=== PATIENT | male | born 1945 | race Caucasian/White ===

== ENCOUNTER 2016-06-02 12:50 | Inpatient (IN) | payer MEDICARE, BC ==
[~2016-06-02] VITALS: Ht 182.9 cm; Wt 91.8 kg
[~2016-06-02 12:50] MED LIST: ALBU0.424 IH; AMLO2.5T29 PO; ASPI81TA2 PO; ATOR40TA71 PO; BISA10SU61 PR; CLOP75 PO; EPOE10003 SQ; FERR1TAB85 PO; KDUR10 PO; METO-323 PO; MOM30 PO; OMEG300C3 PO; ONDA4TAB4 PO; PANT40TA25 PO; RANO500T3 PO; SALMH IH; SAW450CA4 PO; VITAD5000 PO; ZAFI20TA13 PO; ZOLP5TAB2 PO
[2016-06-02 14:20] LABS: BASOPHILS % (AUTO) 0.3 % (0.0-2.0); EOSINOPHILS % (AUTO) 1.3 % (1.0-6.0); LYMPHOCYTES # (AUTO) 0.5 K/uL (1.0-4.8); MEAN CORPUSCULAR HGB CONC 29.5 G/dL (31.0-37.0); MEAN CORPUSCULAR VOLUME 81 fL (80-100); MONOCYTES # (AUTO) 0.6 K/uL (0.1-1.0); MONOCYTES % (AUTO) 7.5 % (2.0-9.0); NEUTROPHILS # (AUTO) 6.4 K/uL (1.8-7.7); NEUTROPHILS % (AUTO) 83.9 % (40.0-70.0); PLATELET COUNT (AUTO) 388 K/uL (150-450); RED BLOOD CELL COUNT(AUTO) 2.14 MIL/uL (4.50-5.90); RED CELL DISTRIBUTION WIDTH 18.5 % (11.5-14.5); WHITE BLOOD COUNT (AUTO) 7.7 K/uL (4.5-11.0)
[2016-06-02 14:28] LABS: HEMOGLOBIN 5.1 g/dL (13.5-17.5)
[2016-06-02 14:29] LABS: HEMATOCRIT 17.4 % (41-53)
[2016-06-02 14:35] LABS: ANION GAP 10 mmol/L (8-16); CALCIUM, TOTAL 8.3 mg/dL (8.8-10.5); CARBON DIOXIDE 26 mmol/L (22-29); CHLORIDE 111 mmol/L (98-107); GLOMERULAR FILTR. RATE CALC > 60 mL/min (>60); POTASSIUM 3.7 mmol/L (3.5-5.1); SODIUM SERUM 147 mmol/L (136-145); UREA NITROGEN, BLOOD 20 mg/dL (7-18)
[2016-06-02 14:40] LABS: B-TYPE NATRIURETIC PEPTIDE 128 pg/mL (0-100)
[2016-06-02 14:41] LABS: RBC MORPHOLOGY COMMENT ABNORMAL RBC MORPH
[2016-06-02 15:01] LABS: ALANINE AMINOTRANSFERASE 28 U/L (12-78); ALBUMIN 3.2 g/dL (3.4-5.0); ASPARTATE AMINOTRANSFERASE 11 U/L (15-37); BILIRUBIN,TOTAL 0.2 mg/dL (0.1-1.0); CREATINE KINASE MB 4.5 ng/mL (0-5); CREATINE KINASE, TOTAL 125 U/L (39-308); TOTAL PROTEIN, SERUM 6.2 g/dL (6.4-8.2)
[2016-06-02] MEDS ORDERED: ONDANSETRON HCL 4 MG/2 ML VIAL IVP PRN (16:00)
[2016-06-02] MEDS ORDERED: 0.9% SODIUM CHLORIDE 10 ML SYRINGE IVP PRN (16:00)
[2016-06-02] MEDS ORDERED: ACETAMINOPHEN 325 MG TABLET PO PRN (16:00)
[2016-06-02] MEDS ORDERED: DiphenhydrAMINE HCL 25 MG CAPSULE PO ONE (17:30)
[2016-06-02] MEDS ORDERED: ONDANSETRON HCL 4 MG TABLET PO PRN (17:30)
[2016-06-02] MEDS ORDERED: BISACODYL 10 MG RECTAL RECTAL SUPPOSITORY PR PRN (17:30)
[2016-06-02] MEDS ORDERED: MAGNESIUM HYDROXIDE SUSPENSION 30 ML UDCUP PO PRN (17:30)
[2016-06-02] MEDS ORDERED: ZOLPIDEM TARTRATE 5 MG TABLET PO PRN (17:30)
[2016-06-02 18:16] LABS: APPEARANCE,URINE CLEAR (CLEAR); GLUCOSE, URINE (UA) NEGATIVE (NEGATIVE); KETONES,URINE NEGATIVE (NEGATIVE); LEUKOCYTE ESTERASE ,URINE NEGATIVE (NEGATIVE); OCCULT BLOOD,URINE NEGATIVE (NEGATIVE); PROTEIN,URINE NEGATIVE (NEGATIVE)
[2016-06-02 18:33] LABS: ADD UA MICROSCOPIC NO
[2016-06-02] MEDS: FUROSEMIDE 20 MG/2 ML VIAL IVP ONE ×2 (18:42→18:45)
[2016-06-02 20:52] VITALS: BP 122/59
[2016-06-02] MEDS: BUDESONIDE 0.5 MG/2 ML NEB SOLUTION NEB SCH (20:58)
[2016-06-02] MEDS ORDERED: SODIUM CHLORIDE 0.9% 250 ML IV ONE (21:07)
[2016-06-02] MEDS: ATORVASTATIN CALCIUM 40 MG TABLET PO SCH (21:46)
[2016-06-02] MEDS: RANOLAZINE 500 MG SR TABLET PO SCH (21:47)
[2016-06-02] MEDS: ZAFIRLUKAST 20 MG TABLET PO SCH (21:47)
[2016-06-02] MEDS: SALMETEROL XINAFOATE IH SCH (21:47)
[2016-06-02] MEDS ORDERED: ALBU8HFA4 IH (23:51)
[2016-06-02] MEDS ORDERED: BUDE10.2 IH (23:51)
[2016-06-02 23:58] VITALS: BP 120/50
[2016-06-02] MEDS: ALBUTEROL SULFATE HFA 90 MCG/PUFF 8 GM INHALER IH PRN (23:58)
[2016-06-03] VITALS (35 sets, daily range): BP systolic 101–131; BP diastolic 54–77
[2016-06-03] MEDS: BUDESONIDE 0.5 MG/2 ML NEB SOLUTION NEB SCH ×2 (08:21→22:00)
[2016-06-03] MEDS: SALMETEROL XINAFOATE IH SCH ×2 (08:42→20:48)
[2016-06-03] MEDS: RANOLAZINE 500 MG SR TABLET PO SCH ×2 (08:44→20:45)
[2016-06-03] MEDS: AmLODIPine BESYLATE 2.5 MG TABLET PO SCH (08:45)
[2016-06-03] MEDS: METOPROLOL SUCCINATE 25 MG ER TABLET PO SCH (08:45)
[2016-06-03] MEDS: ZAFIRLUKAST 20 MG TABLET PO SCH ×2 (08:45→20:45)
[2016-06-03] MEDS: POTASSIUM CHLORIDE 10 MEQ ER TABLET PO SCH (08:45)
[2016-06-03] MEDS: PANTOPRAZOLE SODIUM 40 MG DR TABLET PO SCH (08:45)
[2016-06-03] MEDS: CHOLECALCIFEROL (VIT D3) 5,000 UNITS CAPSULE PO SCH (08:45)
[2016-06-03] MEDS ORDERED: EPOETIN ALFA 10,000 UNITS/ML VIAL SQ SCH (09:00)
[2016-06-03] MEDS: ASPIRIN 81 MG CHEWABLE TABLET PO SCH (09:00)
[2016-06-03] MEDS: CLOPIDOGREL BISULFATE 75 MG TABLET PO SCH (09:00)
[2016-06-03] MEDS: ALBUTEROL SULFATE HFA 90 MCG/PUFF 8 GM INHALER IH PRN ×2 (09:58→14:41)
[2016-06-03] MEDS ORDERED: FURO40 PO (10:23)
[2016-06-03] MEDS: FUROSEMIDE 40 MG TABLET PO SCH (11:31)
[2016-06-03] MEDS: BUDESONIDE/FORMOTEROL FUMARATE 160-4.5 MCG/PUFF 6.9 GM INHALER IH SCH ×2 (12:05→20:48)
[2016-06-03 12:29] LABS: BASOPHILS % (AUTO) 1.6 % (0.0-2.0); EOSINOPHILS % (AUTO) 2.3 % (1.0-6.0); HEMATOCRIT 25.9 % (41-53); HEMOGLOBIN 7.7 g/dL (13.5-17.5); LYMPHOCYTES # (AUTO) 0.5 K/uL (1.0-4.8); LYMPHOCYTES % (AUTO) 5.2 % (22.0-44.0); MEAN CORPUSCULAR HGB CONC 29.9 G/dL (31.0-37.0); MEAN CORPUSCULAR VOLUME 83 fL (80-100); MONOCYTES # (AUTO) 0.8 K/uL (0.1-1.0); MONOCYTES % (AUTO) 7.4 % (2.0-9.0); NEUTROPHILS # (AUTO) 8.5 K/uL (1.8-7.7); NEUTROPHILS % (AUTO) 83.5 % (40.0-70.0); PLATELET COUNT (AUTO) 370 K/uL (150-450); RED CELL DISTRIBUTION WIDTH 17.5 % (11.5-14.5); WHITE BLOOD COUNT (AUTO) 10.2 K/uL (4.5-11.0)
[2016-06-03 12:56] LABS: RBC MORPHOLOGY COMMENT ABNORMAL RBC MORPH
[2016-06-03] MEDS ORDERED: DiphenhydrAMINE HCL 25 MG CAPSULE PO ONE (13:00)
[2016-06-03] MEDS ORDERED: FUROSEMIDE 20 MG/2 ML VIAL IVP ONE ×2 (13:00)
[2016-06-03] MEDS ORDERED: SODIUM CHLORIDE 0.9% 500 ML IV ONE (14:41)
[2016-06-03] MEDS: FERROUS SULFATE 325 MG EC TABLET PO SCH (19:05)
[2016-06-03] MEDS ORDERED: DiphenhydrAMINE HCL 50 MG/ML VIAL ONE (20:24)
[2016-06-03] MEDS ORDERED: IPRATROPIUM BROMIDE 0.5 MG/2.5 ML NEB SOLUTION NEB PRN (20:30)
[2016-06-03] MEDS ORDERED: DiphenhydrAMINE HCL 50 MG/ML VIAL IVP ONE (20:30)
[2016-06-03] MEDS: ATORVASTATIN CALCIUM 40 MG TABLET PO SCH (20:45)
[2016-06-03] MEDS: PredniSONE 20 MG TABLET PO SCH (20:45)
[2016-06-03 22:02] LABS: BASOPHILS # (AUTO) 0.02 K/uL (0.00-0.20); BASOPHILS % (AUTO) 0.5 % (0.0-2.0); EOSINOPHILS # (AUTO) 0.05 K/uL (0.00-0.70); EOSINOPHILS % (AUTO) 1.34 % (1.0-6.0); HEMATOCRIT 28.9 % (41-53); HEMOGLOBIN 9.2 g/dL (13.5-17.5); LYMPHOCYTES # (AUTO) 0.1 K/uL (1.0-4.8); LYMPHOCYTES % (AUTO) 2.6 % (22.0-44.0); MEAN CORPUSCULAR HEMOGLOBIN 26.3 pg (26.0-34.0); MEAN CORPUSCULAR HGB CONC 31.7 G/dL (31.0-37.0); MEAN CORPUSCULAR VOLUME 83 fL (80-100); MONOCYTES % (AUTO) 0.4 % (2.0-9.0); NEUTROPHILS # (AUTO) 3.9 K/uL (1.8-7.7); PLATELET COUNT (AUTO) 306 K/uL (150-450); RED BLOOD CELL COUNT(AUTO) 3.48 MIL/uL (4.50-5.90); RED CELL DISTRIBUTION WIDTH 17.2 % (11.5-14.5); WHITE BLOOD COUNT (AUTO) 4.1 K/uL (4.5-11.0)
[2016-06-03 22:07] LABS: NEUTROPHILS % (AUTO) 95.2 % (40.0-70.0)
[2016-06-03 22:25] LABS: RBC MORPHOLOGY COMMENT ABNORMAL RBC MORPH
[2016-06-04 05:02] VITALS: BP 102/57
[2016-06-04 07:08] LABS: EOSINOPHILS % (AUTO) 0 % (1.0-6.0); HEMATOCRIT 26.7 % (41-53); HEMOGLOBIN 8.3 g/dL (13.5-17.5); LYMPHOCYTES # (AUTO) 0.1 K/uL (1.0-4.8); LYMPHOCYTES % (AUTO) 0.7 % (22.0-44.0); MEAN CORPUSCULAR HEMOGLOBIN 25.9 pg (26.0-34.0); MEAN CORPUSCULAR HGB CONC 30.9 G/dL (31.0-37.0); MEAN CORPUSCULAR VOLUME 84 fL (80-100); MONOCYTES # (AUTO) 0.4 K/uL (0.1-1.0); MONOCYTES % (AUTO) 2.3 % (2.0-9.0); NEUTROPHILS # (AUTO) 16.8 K/uL (1.8-7.7); PLATELET COUNT (AUTO) 308 K/uL (150-450); RED BLOOD CELL COUNT(AUTO) 3.19 MIL/uL (4.50-5.90); RED CELL DISTRIBUTION WIDTH 16.9 % (11.5-14.5); WHITE BLOOD COUNT (AUTO) 17.3 K/uL (4.5-11.0)
[2016-06-04 07:25] LABS: ANION GAP 7 mmol/L (8-16); CARBON DIOXIDE 28 mmol/L (22-29); CHLORIDE 108 mmol/L (98-107); CREATININE 1.09 mg/dL (0.60-1.30); POTASSIUM 3.4 mmol/L (3.5-5.1); SODIUM SERUM 143 mmol/L (136-145); UREA NITROGEN, BLOOD 20 mg/dL (7-18)
[2016-06-04 07:26] LABS: CALCIUM, TOTAL 7.8 mg/dL (8.8-10.5); GLOMERULAR FILTR. RATE CALC > 60 mL/min (>60)
[2016-06-04 07:39] VITALS: BP 105/60
[2016-06-04] MEDS: METOPROLOL SUCCINATE 25 MG ER TABLET PO SCH (08:04)
[2016-06-04 08:10] LABS: RBC MORPHOLOGY COMMENT ABNORMAL RBC MORPH
[2016-06-04] MEDS: ASPIRIN 81 MG CHEWABLE TABLET PO SCH (08:24)
[2016-06-04] MEDS: CLOPIDOGREL BISULFATE 75 MG TABLET PO SCH (08:24)
[2016-06-04] MEDS: FERROUS SULFATE 325 MG EC TABLET PO SCH (08:35)
[2016-06-04] MEDS: SALMETEROL XINAFOATE IH SCH (08:35)
[2016-06-04] MEDS: PANTOPRAZOLE SODIUM 40 MG DR TABLET PO SCH (08:35)
[2016-06-04] MEDS: FUROSEMIDE 40 MG TABLET PO SCH (08:35)
[2016-06-04] MEDS: PredniSONE 20 MG TABLET PO SCH (08:35)
[2016-06-04] MEDS: POTASSIUM CHLORIDE 10 MEQ ER TABLET PO SCH (08:36)
[2016-06-04] MEDS: ZAFIRLUKAST 20 MG TABLET PO SCH (08:36)
[2016-06-04] MEDS: ALBUTEROL SULFATE HFA 90 MCG/PUFF 8 GM INHALER IH PRN (08:36)
[2016-06-04] MEDS: BUDESONIDE/FORMOTEROL FUMARATE 160-4.5 MCG/PUFF 6.9 GM INHALER IH SCH (08:36)
[2016-06-04] MEDS: RANOLAZINE 500 MG SR TABLET PO SCH (08:37)
[2016-06-04] MEDS: CHOLECALCIFEROL (VIT D3) 5,000 UNITS CAPSULE PO SCH (08:37)
[2016-06-04] MEDS: BUDESONIDE 0.5 MG/2 ML NEB SOLUTION NEB SCH (08:43)
[2016-06-04] MEDS: AmLODIPine BESYLATE 2.5 MG TABLET PO SCH (09:00)
[2016-06-04] MEDS ORDERED: EPOETIN ALFA 10,000 UNITS/ML VIAL SQ ONE ×2 (10:30)
[2016-06-04] MEDS ORDERED: POTASSIUM CHLORIDE 20 MEQ ER TABLET PO ONE (10:30)
[2016-06-04 13:25] VITALS: BP 111/54
[2016-06-04 15:47] VITALS: BP 112/59
== END 2016-06-04 15:45 | disposition home or self-care (01) | DRG 815 ==
LOC: EMS 12:56 → 5S 18:15
PROVIDERS: ADMIT Internal Medicine Geriatric Medicine; ATTEND Internal Medicine Geriatric Medicine
PROC: 30233N1 Transfusion of Nonautologous Red Blood Cells into Peripheral Vein, Percutaneous Approach (ICD-10-PCS; principal; 2016-06-03)
DX: D75.89 Other specified diseases of blood and blood-forming organs (principal); E87.0 Hyperosmolality and hypernatremia; J44.1 Chronic obstructive pulmonary disease with (acute) exacerbation; D72.829 Elevated white blood cell count, unspecified; E87.6 Hypokalemia; J30.9 Allergic rhinitis, unspecified; R60.9 Edema, unspecified; Z53.29 Procedure and treatment not carried out because of patient's decision for other reasons; E78.5 Hyperlipidemia, unspecified; D63.8 Anemia in other chronic diseases classified elsewhere; I10 Essential (primary) hypertension; I25.10 Atherosclerotic heart disease of native coronary artery without angina pectoris; Z86.73 Personal history of transient ischemic attack (TIA), and cerebral infarction without residual deficits; Z95.1 Presence of aortocoronary bypass graft; I25.2 Old myocardial infarction; Z88.6 Allergy status to analgesic agent; Z87.891 Personal history of nicotine dependence
CPT/HCPCS: 86850; 86870; 86880; 86900; 86901; 86922; 86931; 86971; 93005; 94640; 99291; J0885; J1200; J1940; J3535; J7040; J7050; P9016; Q0162

== ENCOUNTER 2016-06-28 19:11 | Inpatient (IN) | payer MEDICARE, BC ==
[~2016-06-28] VITALS: Ht 182.9 cm; Wt 88.4 kg
[~2016-06-28 19:11] MED LIST changes: +ALBU8HFA4 IH; +BUDE10.2 IH; +FURO40 PO
[2016-06-28 20:38] LABS: PROTHROMBIN TIME 10.3 SEC (9.4-11.6)
[2016-06-28 20:40] LABS: BASOPHILS # (AUTO) 0.04 K/uL (0.00-0.20); BASOPHILS % (AUTO) 0.4 % (0.0-2.0); EOSINOPHILS # (AUTO) 0.13 K/uL (0.00-0.70); EOSINOPHILS % (AUTO) 1.23 % (1.0-6.0); LYMPHOCYTES # (AUTO) 0.5 K/uL (1.0-4.8); MEAN CORPUSCULAR HEMOGLOBIN 28.3 pg (26.0-34.0); MEAN CORPUSCULAR HGB CONC 30.7 G/dL (31.0-37.0); MEAN CORPUSCULAR VOLUME 92 fL (80-100); MONOCYTES # (AUTO) 0.7 K/uL (0.1-1.0); MONOCYTES % (AUTO) 6.6 % (2.0-9.0); NEUTROPHILS # (AUTO) 8.9 K/uL (1.8-7.7); PLATELET COUNT (AUTO) 409 K/uL (150-450); RED BLOOD CELL COUNT(AUTO) 2.17 MIL/uL (4.50-5.90); RED CELL DISTRIBUTION WIDTH 23.1 % (11.5-14.5); WHITE BLOOD COUNT (AUTO) 10.3 K/uL (4.5-11.0)
[2016-06-28 20:42] LABS: ANION GAP 11 mmol/L (8-16); CALCIUM, TOTAL 8.3 mg/dL (8.8-10.5); CARBON DIOXIDE 26 mmol/L (22-29); CHLORIDE 111 mmol/L (98-107); CREATININE 1.04 mg/dL (0.60-1.30); GLOMERULAR FILTR. RATE CALC > 60 mL/min (>60); POTASSIUM 3.5 mmol/L (3.5-5.1); SODIUM SERUM 148 mmol/L (136-145); UREA NITROGEN, BLOOD 23 mg/dL (7-18)
[2016-06-28 20:48] LABS: ALANINE AMINOTRANSFERASE 37 U/L (12-78); ASPARTATE AMINOTRANSFERASE 17 U/L (15-37); BILIRUBIN,TOTAL 0.2 mg/dL (0.1-1.0); NEUTROPHILS % (AUTO) 86.7 % (40.0-70.0); TOTAL PROTEIN, SERUM 6.1 g/dL (6.4-8.2)
[2016-06-28 20:49] LABS: HEMOGLOBIN 6.2 g/dL (13.5-17.5)
[2016-06-28 21:32] LABS: B-TYPE NATRIURETIC PEPTIDE 102 pg/mL (0-100)
[2016-06-28] MEDS ORDERED: ALBUTEROL SULFATE HFA 90 MCG/PUFF 8 GM INHALER IH PRN (22:45)
[2016-06-28] MEDS ORDERED: ONDANSETRON HCL 4 MG TABLET PO PRN (22:45)
[2016-06-28] MEDS ORDERED: BISACODYL 10 MG RECTAL RECTAL SUPPOSITORY PR PRN (22:45)
[2016-06-28] MEDS ORDERED: ZOLPIDEM TARTRATE 5 MG TABLET PO PRN (22:45)
[2016-06-28] MEDS ORDERED: MAGNESIUM HYDROXIDE SUSPENSION 30 ML UDCUP PO PRN (22:45)
[2016-06-28] MEDS ORDERED: ONDANSETRON HCL 4 MG/2 ML VIAL IVP PRN (23:00)
[2016-06-28] MEDS ORDERED: DiphenhydrAMINE HCL 50 MG/ML VIAL IVP PRN (23:00)
[2016-06-28] MEDS ORDERED: 0.9% SODIUM CHLORIDE 10 ML SYRINGE IVP PRN (23:00)
[2016-06-28] MEDS ORDERED: ACETAMINOPHEN 325 MG TABLET PO PRN (23:00)
[2016-06-28 23:31] VITALS: BP 124/71
[2016-06-29] VITALS (20 sets, daily range): BP systolic 102–134; BP diastolic 46–84
[2016-06-29] MEDS ORDERED: SALMETEROL XINAFOATE IH ONE (00:15)
[2016-06-29] MEDS: SALMETEROL XINAFOATE IH SCH ×3 (00:16→20:40)
[2016-06-29] MEDS: ACETAMINOPHEN 325 MG TABLET PO PRN ×3 (01:59→22:46)
[2016-06-29 06:30] LABS: BASOPHILS % (AUTO) 0.5 % (0.0-2.0); EOSINOPHILS % (AUTO) 3.1 % (1.0-6.0); LYMPHOCYTES # (AUTO) 0.6 K/uL (1.0-4.8); LYMPHOCYTES % (AUTO) 8.1 % (22.0-44.0); MEAN CORPUSCULAR HEMOGLOBIN 28.4 pg (26.0-34.0); MEAN CORPUSCULAR HGB CONC 30.7 G/dL (31.0-37.0); MEAN CORPUSCULAR VOLUME 93 fL (80-100); MONOCYTES # (AUTO) 0.7 K/uL (0.1-1.0); MONOCYTES % (AUTO) 9.6 % (2.0-9.0); NEUTROPHILS # (AUTO) 5.5 K/uL (1.8-7.7); NEUTROPHILS % (AUTO) 78.7 % (40.0-70.0); PLATELET COUNT (AUTO) 385 K/uL (150-450); RED BLOOD CELL COUNT(AUTO) 1.87 MIL/uL (4.50-5.90); RED CELL DISTRIBUTION WIDTH 23.4 % (11.5-14.5)
[2016-06-29 06:57] LABS: ANION GAP 2 mmol/L (8-16); CALCIUM, TOTAL 7.8 mg/dL (8.8-10.5); CARBON DIOXIDE 26 mmol/L (22-29); CHLORIDE 110 mmol/L (98-107); CREATININE 0.81 mg/dL (0.60-1.30); GLOMERULAR FILTR. RATE CALC > 60 mL/min (>60); SODIUM SERUM 138 mmol/L (136-145); UREA NITROGEN, BLOOD 20 mg/dL (7-18)
[2016-06-29 07:22] LABS: HEMATOCRIT 17.3 % (41-53); HEMOGLOBIN 5.3 g/dL (13.5-17.5)
[2016-06-29] MEDS ORDERED: EPOETIN ALFA 10,000 UNITS/ML VIAL SQ SCH (09:00)
[2016-06-29] MEDS ORDERED: SALMETEROL XINAFOATE IH SCH (09:00)
[2016-06-29] MEDS ORDERED: ASPIRIN 81 MG CHEWABLE TABLET PO SCH (09:00)
[2016-06-29] MEDS ORDERED: POTASSIUM CHL 10 MEQ/WATER 50 ML IV PRN (09:30)
[2016-06-29] MEDS ORDERED: POTASSIUM CHLORIDE 20 MEQ ER TABLET PO PRN (09:30)
[2016-06-29 09:31] LABS: RBC MORPHOLOGY COMMENT ABNORMAL RBC MORPH
[2016-06-29] MEDS: CHOLECALCIFEROL (VIT D3) 5,000 UNITS CAPSULE PO SCH (09:31)
[2016-06-29] MEDS: PANTOPRAZOLE SODIUM 40 MG DR TABLET PO SCH (09:32)
[2016-06-29] MEDS: FUROSEMIDE 40 MG TABLET PO SCH (09:32)
[2016-06-29] MEDS: POTASSIUM CHLORIDE 10 MEQ ER TABLET PO SCH (09:32)
[2016-06-29] MEDS: ZAFIRLUKAST 20 MG TABLET PO SCH ×2 (09:33→20:40)
[2016-06-29] MEDS: BUDESONIDE/FORMOTEROL FUMARATE 160-4.5 MCG/PUFF 6.9 GM INHALER IH SCH ×2 (09:34→20:40)
[2016-06-29] MEDS ORDERED: SODIUM CHLORIDE 0.9% 500 ML IV ONE (13:11)
[2016-06-29 14:25] LABS: APPEARANCE,URINE CLEAR (CLEAR); GLUCOSE, URINE (UA) NEGATIVE (NEGATIVE); KETONES,URINE NEGATIVE (NEGATIVE); LEUKOCYTE ESTERASE ,URINE NEGATIVE (NEGATIVE); OCCULT BLOOD,URINE NEGATIVE (NEGATIVE); PROTEIN,URINE NEGATIVE (NEGATIVE)
[2016-06-29 14:26] LABS: ADD UA MICROSCOPIC NO
[2016-06-29] MEDS ORDERED: ATORVASTATIN CALCIUM 40 MG TABLET PO SCH (21:00)
[2016-06-29] MEDS ORDERED: METOPROLOL SUCCINATE 25 MG ER TABLET PO SCH (23:00)
[2016-06-30] VITALS (13 sets, daily range): BP systolic 109–132; BP diastolic 50–72
[2016-06-30] MEDS ORDERED: SODIUM CHLORIDE 0.9% 250 ML IV ONE (05:58)
[2016-06-30 07:22] LABS: ALANINE AMINOTRANSFERASE 24 U/L (12-78); ALBUMIN 2.6 g/dL (3.4-5.0); ANION GAP 7 mmol/L (8-16); ASPARTATE AMINOTRANSFERASE 10 U/L (15-37); BILIRUBIN,TOTAL 0.4 mg/dL (0.1-1.0); CALCIUM, TOTAL 7.7 mg/dL (8.8-10.5); CARBON DIOXIDE 29 mmol/L (22-29); CHLORIDE 111 mmol/L (98-107); CREATININE 0.72 mg/dL (0.60-1.30); GLOMERULAR FILTR. RATE CALC > 60 mL/min (>60); POTASSIUM 3.5 mmol/L (3.5-5.1); SODIUM SERUM 147 mmol/L (136-145); TOTAL PROTEIN, SERUM 5.3 g/dL (6.4-8.2); UREA NITROGEN, BLOOD 14 mg/dL (7-18)
[2016-06-30] MEDS: ZAFIRLUKAST 20 MG TABLET PO SCH (08:20)
[2016-06-30] MEDS: POTASSIUM CHLORIDE 10 MEQ ER TABLET PO SCH (08:20)
[2016-06-30] MEDS: BUDESONIDE/FORMOTEROL FUMARATE 160-4.5 MCG/PUFF 6.9 GM INHALER IH SCH (08:21)
[2016-06-30] MEDS: FUROSEMIDE 40 MG TABLET PO SCH (08:21)
[2016-06-30] MEDS: PANTOPRAZOLE SODIUM 40 MG DR TABLET PO SCH (08:22)
[2016-06-30] MEDS: CHOLECALCIFEROL (VIT D3) 5,000 UNITS CAPSULE PO SCH (08:22)
[2016-06-30] MEDS: SALMETEROL XINAFOATE IH SCH (08:28)
[2016-06-30 12:16] LABS: BASOPHILS % (AUTO) 0.7 % (0.0-2.0); EOSINOPHILS % (AUTO) 3.3 % (1.0-6.0); HEMATOCRIT 30.4 % (41-53); HEMOGLOBIN 9.2 g/dL (13.5-17.5); LYMPHOCYTES # (AUTO) 0.5 K/uL (1.0-4.8); LYMPHOCYTES % (AUTO) 4.7 % (22.0-44.0); MEAN CORPUSCULAR HEMOGLOBIN 27.7 pg (26.0-34.0); MEAN CORPUSCULAR HGB CONC 30.4 G/dL (31.0-37.0); MEAN CORPUSCULAR VOLUME 91 fL (80-100); MONOCYTES # (AUTO) 0.9 K/uL (0.1-1.0); MONOCYTES % (AUTO) 8.7 % (2.0-9.0); NEUTROPHILS # (AUTO) 8.1 K/uL (1.8-7.7); NEUTROPHILS % (AUTO) 82.6 % (40.0-70.0); PLATELET COUNT (AUTO) 366 K/uL (150-450); RED BLOOD CELL COUNT(AUTO) 3.34 MIL/uL (4.50-5.90); RED CELL DISTRIBUTION WIDTH 20.3 % (11.5-14.5); WHITE BLOOD COUNT (AUTO) 9.8 K/uL (4.5-11.0)
[2016-06-30 12:49] LABS: RBC MORPHOLOGY COMMENT ABNORMAL RBC MORPH
[2016-07-05] MEDS ORDERED: EPOETIN ALFA 10,000 UNITS/ML VIAL SQ SCH (09:00)
== END 2016-06-30 12:55 | disposition home or self-care (01) | DRG 378 ==
LOC: EMS 19:15 → 6N 22:45
PROVIDERS: ADMIT Internal Medicine Geriatric Medicine; ATTEND Internal Medicine Geriatric Medicine
PROC: 30233N1 Transfusion of Nonautologous Red Blood Cells into Peripheral Vein, Percutaneous Approach (ICD-10-PCS; principal; 2016-06-29)
DX: K92.2 Gastrointestinal hemorrhage, unspecified (principal); I69.351 Hemiplegia and hemiparesis following cerebral infarction affecting right dominant side; I50.20 Unspecified systolic (congestive) heart failure; D46.9 Myelodysplastic syndrome, unspecified; J44.9 Chronic obstructive pulmonary disease, unspecified; E55.9 Vitamin D deficiency, unspecified; I25.10 Atherosclerotic heart disease of native coronary artery without angina pectoris; I25.2 Old myocardial infarction; J30.9 Allergic rhinitis, unspecified; E78.5 Hyperlipidemia, unspecified; R19.5 Other fecal abnormalities; I11.0 Hypertensive heart disease with heart failure; I25.5 Ischemic cardiomyopathy; I73.9 Peripheral vascular disease, unspecified; K57.90 Diverticulosis of intestine, part unspecified, without perforation or abscess without bleeding; K64.9 Unspecified hemorrhoids; I34.0 Nonrheumatic mitral (valve) insufficiency; I45.10 Unspecified right bundle-branch block; E87.6 Hypokalemia; Z95.1 Presence of aortocoronary bypass graft; Z88.5 Allergy status to narcotic agent; Z79.899 Other long term (current) drug therapy; Z79.82 Long term (current) use of aspirin; Z79.02 Long term (current) use of antithrombotics/antiplatelets; Z79.01 Long term (current) use of anticoagulants; Z53.29 Procedure and treatment not carried out because of patient's decision for other reasons; Z95.5 Presence of coronary angioplasty implant and graft; Z98.890 Other specified postprocedural states; Z86.010 Personal history of colon polyps; Z87.891 Personal history of nicotine dependence; Z86.718 Personal history of other venous thrombosis and embolism
CPT/HCPCS: 82271; 82306; 82607; 82746; 83735; 84132; 86850; 86870; 86880; 86900; 86901; 86922; 86931; 86970; 86971; 93005; 99285; J0885; J1200; J3535; J7040; J7050; P9016

== ENCOUNTER 2016-09-09 17:23 | Emergency (ER) | payer MEDICARE, BC ==
[~2016-09-09] VITALS: Ht 182.9 cm; Wt 87.7 kg
[~2016-09-09 17:23] MED LIST changes: -ASPI81TA2 PO; -CLOP75 PO; -EPOE10003 SQ
[2016-09-09] MEDS ORDERED: VITAMIN D 5000 PO (17:41)
[2016-09-09] MEDS ORDERED: LEVO75 PO (17:41)
[2016-09-09] MEDS ORDERED: ASPI81 PO (17:41)
[2016-09-09] MEDS ORDERED: VITA100012 PO (17:41)
[2016-09-09] MEDS ORDERED: UBID100C10 PO (17:41)
[2016-09-09] MEDS ORDERED: CYAN250014 PO (17:41)
[2016-09-09] MEDS ORDERED: OLOP30.5 NASAL (17:41)
[2016-09-09] MEDS ORDERED: LISI-662 PO (17:41)
[2016-09-09 19:06] LABS: BASOPHILS % (AUTO) 0.4 % (0.0-2.0); EOSINOPHILS % (AUTO) 2.2 % (1.0-6.0); HEMATOCRIT 29.7 % (41-53); HEMOGLOBIN 9.9 g/dL (13.5-17.5); LYMPHOCYTES # (AUTO) 0.6 K/uL (1.0-4.8); LYMPHOCYTES % (AUTO) 6.5 % (22.0-44.0); MEAN CORPUSCULAR HEMOGLOBIN 28.7 pg (26.0-34.0); MEAN CORPUSCULAR HGB CONC 33.4 G/dL (31.0-37.0); MEAN CORPUSCULAR VOLUME 86 fL (80-100); MONOCYTES # (AUTO) 0.7 K/uL (0.1-1.0); NEUTROPHILS # (AUTO) 8.3 K/uL (1.8-7.7); NEUTROPHILS % (AUTO) 83.9 % (40.0-70.0); PLATELET COUNT (AUTO) 302 K/uL (150-450); RED BLOOD CELL COUNT(AUTO) 3.46 MIL/uL (4.50-5.90); WHITE BLOOD COUNT (AUTO) 9.9 K/uL (4.5-11.0)
[2016-09-09 19:35] LABS: ANION GAP 12 mmol/L (8-16); CALCIUM, TOTAL 8.7 mg/dL (8.8-10.5); CARBON DIOXIDE 26 mmol/L (22-29); CHLORIDE 109 mmol/L (98-107); CREATININE 0.89 mg/dL (0.60-1.30); GLOMERULAR FILTR. RATE CALC > 60 mL/min (>60); POTASSIUM 4.2 mmol/L (3.5-5.1); SODIUM SERUM 147 mmol/L (136-145); UREA NITROGEN, BLOOD 27 mg/dL (7-18)
[2016-09-09 19:41] LABS: ALANINE AMINOTRANSFERASE 24 U/L (12-78); ALBUMIN 3.4 g/dL (3.4-5.0); ASPARTATE AMINOTRANSFERASE 14 U/L (15-37); BILIRUBIN,TOTAL 0.3 mg/dL (0.1-1.0); TOTAL PROTEIN, SERUM 6.6 g/dL (6.4-8.2)
[2016-09-09 19:43] LABS: PROTHROMBIN TIME 10.3 SEC (9.4-11.6)
[2016-09-09 20:12] VITALS: BP 123/68
== END 2016-09-09 20:13 | disposition home or self-care (01) ==
LOC: EMS 17:29
DX: E87.0 Hyperosmolality and hypernatremia (principal); I25.2 Old myocardial infarction; I25.10 Atherosclerotic heart disease of native coronary artery without angina pectoris; J44.9 Chronic obstructive pulmonary disease, unspecified; D64.9 Anemia, unspecified; Z95.1 Presence of aortocoronary bypass graft; Z88.5 Allergy status to narcotic agent
CPT/HCPCS: 99284

== ENCOUNTER → 2017-09-07 | Outpatient (CLI) | payer MEDICARE, BC ==
[~2017-09-07] MED LIST changes: -ALBU0.424 IH; +ALBU1.252 IH; +ASPI81 PO; -ATOR40TA71 PO; +CYAN250014 PO; -FURO40 PO; +LEVO75 PO; +LISI-662 PO; -METO-323 PO; +METO-408 PO; +OLOP30.5 NASAL; -SAW450CA4 PO; +SAW450CA7 PO; +UBID100C10 PO; +VITA100012 PO; +VITAMIN D 5000 PO
[2017-09-07 14:31] LABS: BASOPHILS % (AUTO) 0.9 % (0.0-2.0); HEMATOCRIT 40.6 % (41-53); LYMPHOCYTES # (AUTO) 0.8 K/uL (1.0-4.8); LYMPHOCYTES % (AUTO) 9.3 % (22.0-44.0); MEAN CORPUSCULAR HEMOGLOBIN 29.4 pg (26.0-34.0); MEAN CORPUSCULAR HGB CONC 34.5 G/dL (31.0-37.0); MEAN CORPUSCULAR VOLUME 85 fL (80-100); MONOCYTES # (AUTO) 0.8 K/uL (0.1-1.0); MONOCYTES % (AUTO) 8.7 % (2.0-9.0); NEUTROPHILS # (AUTO) 6.9 K/uL (1.8-7.7); NEUTROPHILS % (AUTO) 79.1 % (40.0-70.0); PLATELET COUNT (AUTO) 270 K/uL (150-450); RED BLOOD CELL COUNT(AUTO) 4.77 MIL/uL (4.50-5.90); RED CELL DISTRIBUTION WIDTH 16.6 % (11.5-14.5)
[2017-09-07 14:49] LABS: ALANINE AMINOTRANSFERASE 31 U/L (12-78); ALBUMIN 3.8 g/dL (3.4-5.0); ALKALINE PHOSPHATASE 73 U/L (46-116); ANION GAP 8 mmol/L (8-16); ASPARTATE AMINOTRANSFERASE 20 U/L (15-37); BILIRUBIN,TOTAL 0.6 mg/dL (0.1-1.0); CALCIUM, TOTAL 8.9 mg/dL (8.8-10.5); CARBON DIOXIDE 27 mmol/L (22-29); CHLORIDE 107 mmol/L (98-107); CHOL/HDL RATIO 3.1 (4.2-7.3); CHOLESTEROL 159 mg/dL (131-200); FREE T4 (FREE THYROXINE) 0.93 ng/dL (0.76-1.46); GLUCOSE,RANDOM 80 mg/dL (70-110); HDL CHOLESTEROL 51 mg/dL (40-60); LDL CHOL (CALC.) 74 mg/dL (0-130); POTASSIUM 4.4 mmol/L (3.5-5.1); SODIUM SERUM 142 mmol/L (136-145); THYROID STIMULATING HORMONE 6.27 uIU/mL (0.36-3.74); TOTAL PROTEIN, SERUM 7.3 g/dL (6.4-8.2); TRIGLYCERIDES 169 mg/dL (15-150); UREA NITROGEN, BLOOD 19 mg/dL (7-18)
[2017-09-07 14:50] LABS: GLOMERULAR FILTR. RATE CALC > 60 mL/min (>60); HEMOGLOBIN A1C 5.6 % (4.5-6.2)
[2017-09-07 14:59] LABS: B-TYPE NATRIURETIC PEPTIDE 67 pg/mL (0-100)
== END | disposition home or self-care (01) ==
LOC: LABPV 12:59
PROVIDERS: ATTEND Internal Medicine Cardiovascular Disease
DX: I11.0 Hypertensive heart disease with heart failure (principal); I50.9 Heart failure, unspecified; E11.8 Type 2 diabetes mellitus with unspecified complications; E55.9 Vitamin D deficiency, unspecified; D56.5 Hemoglobin E-beta thalassemia
CPT/HCPCS: 82306; 83036; 83735; 84439; 84443